=== PATIENT | female | born 1965 | race Caucasian/White ===

== ENCOUNTER 2025-05-06 08:55 | Outpatient (RCR) | payer OTHER, SELFPAY | END 2025-05-07 23:59 | disposition home or self-care (01) | LOC: GPT 08:55 | PROVIDERS: Visit Provider Family Medicine | DX: M54.50 Low back pain, unspecified (principal); G89.29 Other chronic pain | CPT/HCPCS: 97110; 97112; 97140; 97161 ==

== ENCOUNTER 2025-05-21 12:46 | Outpatient (RCR) | payer OTHER, SELFPAY | END 2025-05-24 09:46 | disposition home or self-care (01) | LOC: GPT 12:46 | PROVIDERS: Visit Provider Family Medicine | DX: M54.50 Low back pain, unspecified (principal); G89.29 Other chronic pain | CPT/HCPCS: 97110; 97112; 97140 ==